=== PATIENT | female | born 1965 | race Hispanic/Latino ===

== ENCOUNTER 2017-09-30 12:20 | Emergency (ER) | payer OTHER | END 2017-09-30 13:22 | disposition home or self-care (01) | LOC: EDH 12:20 | DX: N90.9 Noninflammatory disorder of vulva and perineum, unspecified (principal) ==

== ENCOUNTER 2017-12-25 11:25 | Emergency (ER) | payer OTHER | END 2017-12-25 11:45 | disposition home or self-care (01) | LOC: EDH 11:25 | DX: H60.8X2 Other otitis externa, left ear (principal); Z72.0 Tobacco use ==

== ENCOUNTER → 2020-09-12 | Outpatient (CLI) | payer OTHER | END | disposition home or self-care (01) | LOC: RAH 10:52 | PROVIDERS: ATTEND Internal Medicine | DX: B94.8 Sequelae of other specified infectious and parasitic diseases (principal) | CPT/HCPCS: 71046 ==

== ENCOUNTER 2020-09-19 17:21 | Observation (INO) | payer OTHER ==
[~2020-09-19] VITALS: Ht 149.9 cm; Wt 91.4 kg
[2020-09-19 19:18] LABS: BASOPHILS % (AUTO) 0.6 % (0.0-5.0); EOSINOPHILS % (AUTO) 3.4 % (0.0-8.0); HEMATOCRIT 40.5 % (36-48); LYMPHOCYTES % (AUTO) 28.6 % (21.0-51.0); MEAN CORPUSCULAR HEMOGLOBIN 27.5 pg (27.0-33.0); MEAN CORPUSCULAR HGB CONC 33.1 g/dL (32.0-36.0); MEAN CORPUSCULAR VOLUME 83.2 fL (79-99); NEUTROPHILS % (AUTO) 62.2 % (40.0-77.0); PLATELET COUNT (AUTO) 270 K/uL (130-400); RED BLOOD CELL COUNT(AUTO) 4.87 MIL/uL (4.00-5.50); RED CELL DISTRIBUTION WIDTH 14.1 % (11.0-15.5); WHITE BLOOD COUNT (AUTO) 9.7 K/uL (4.8-10.8)
[2020-09-19 19:21] LABS: CREATININE 0.7 mg/dL (0.5-1.5); POTASSIUM 3.2 mmol/L (3.5-5.1)
[2020-09-19 19:32] LABS: ALBUMIN 3.8 g/dL (3.5-5.0); BILIRUBIN,TOTAL 0.3 mg/dL (0.2-1.0); TOTAL PROTEIN, SERUM 7.1 g/dL (6.0-8.3)
[2020-09-19 19:44] LABS: B-TYPE NATRIURETIC PEPTIDE 19 pg/mL (0-100)
[2020-09-19] MEDS ORDERED: ACETAMINOPHEN 325 MG TAB PO PRN (19:45)
[2020-09-19] MEDS ORDERED: ONDANSETRON HCL 4 MG/2 ML VIAL IV PRN (19:45)
[2020-09-19] MEDS ORDERED: NITROGLYCERIN 0.4 MG SL TAB SL PRN (19:45)
[2020-09-19 20:06] LABS: ABG BASE EXCESS 1.2 mmol/L (-2.0-3.0); ABG HCO3 24.5 mmol/L (21.0-28.0); ABG OXYGEN SATURATION 96.7 % (95.0-99.0); ABG PCO2 35 mmHg (32-45)
[2020-09-19 20:19] LABS: HEMOGLOBIN A1C 5.8 % (4.0-6.0)
[2020-09-19] MEDS: FAMOTIDINE/PF 20 MG/2 ML VIAL IV SCH (21:00)
[2020-09-19 21:09] LABS: CREATINE KINASE, TOTAL 56 U/L (21-232); MYOGLOBIN 29 ng/mL (10-92); PHOSPHORUS 3.5 mg/dL (2.5-4.9); TROPONIN I < 0.04 ng/mL (0.00-0.06)
[2020-09-20] VITALS (7 sets, daily range): BP systolic 103–176; BP diastolic 74–96
[2020-09-20] MEDS ORDERED: POTASSIUM CHLORIDE 20 MEQ ERTAB PO ONE (00:23)
[2020-09-20] MEDS: ATORVASTATIN CALCIUM 20 MG TABLET PO SCH ×2 (01:34→20:52)
[2020-09-20] MEDS ORDERED: DEXTROSE 50%-WATER 50 ML DISP.SYRIN IV PRN (02:00)
[2020-09-20] MEDS ORDERED: GLUCAGON 1MG KIT 1 MG ML IM PRN (02:00)
[2020-09-20] MEDS ORDERED: POTASSIUM CHLORIDE 20MEQ/100ML 100 ML IV PRN (02:00)
[2020-09-20] MEDS ORDERED: LIDOCAINE HCL-MPF 1% 2ML VIAL IV PRN ×2 (02:00)
[2020-09-20] MEDS ORDERED: POTASSIUM CHLORIDE 10MEQ/100ML 100 ML IV PRN (02:00)
[2020-09-20] MEDS ORDERED: POTASSIUM CHLORIDE 10% ELIXIR 20 MEQ/15 ML UDCUP PO PRN ×2 (02:00)
[2020-09-20] MEDS ORDERED: POTASSIUM CHLORIDE 20 MEQ ERTAB PO PRN ×2 (02:00)
[2020-09-20] MEDS ORDERED: LORAZEPAM 2 MG/ML 1 ML VIAL ONE (02:09)
[2020-09-20] MEDS ORDERED: NITROGLYCERIN 1GM/1 INCH PACKET TD ONE (02:10)
[2020-09-20] MEDS: NITROGLYCERIN 1GM/1 INCH PACKET TD SCH ×3 (02:15→18:48)
[2020-09-20] MEDS ORDERED: LORAZEPAM 2 MG/ML 1 ML VIAL IVP PRN (02:15)
[2020-09-20] MEDS ORDERED: LOSA50TA64 PO (02:17)
[2020-09-20 05:02] LABS: BASOPHILS % (AUTO) 0.5 % (0.0-5.0); EOSINOPHILS % (AUTO) 4.6 % (0.0-8.0); HEMATOCRIT 40.4 % (36-48); LYMPHOCYTES % (AUTO) 31.2 % (21.0-51.0); MEAN CORPUSCULAR HEMOGLOBIN 27.2 pg (27.0-33.0); MEAN CORPUSCULAR HGB CONC 32.7 g/dL (32.0-36.0); MEAN CORPUSCULAR VOLUME 83.1 fL (79-99); MONOCYTES % (AUTO) 5.8 % (3.0-13.0); NEUTROPHILS % (AUTO) 57.6 % (40.0-77.0); PLATELET COUNT (AUTO) 264 K/uL (130-400); RED BLOOD CELL COUNT(AUTO) 4.86 MIL/uL (4.00-5.50); RED CELL DISTRIBUTION WIDTH 13.9 % (11.0-15.5); WHITE BLOOD COUNT (AUTO) 8.7 K/uL (4.8-10.8)
[2020-09-20 05:21] LABS: ALANINE AMINOTRANSFERASE 36 U/L (12-78); ALBUMIN 3.4 g/dL (3.5-5.0); ASPARTATE AMINOTRANSFERASE 17 U/L (10-37); BILIRUBIN,TOTAL 0.5 mg/dL (0.2-1.0); CARBON DIOXIDE 27 mmol/L (21-32); CHLORIDE 106 mmol/L (101-111); CREATINE KINASE, TOTAL 46 U/L (21-232); CREATININE 0.7 mg/dL (0.5-1.5); GLOMERULAR FILTR. RATE CALC 93 mL/min (>60); GLUCOSE,RANDOM 91 mg/dL (70-105); MYOGLOBIN 33 ng/mL (10-92); POTASSIUM 3.8 mmol/L (3.5-5.1); SODIUM SERUM 140 mmol/L (136-145); TOTAL PROTEIN, SERUM 6.6 g/dL (6.0-8.3); TROPONIN I < 0.04 ng/mL (0.00-0.06); UREA NITROGEN, BLOOD 14 mg/dL (7-18)
[2020-09-20] MEDS: ASPIRIN 325MG EC TAB 325 MG TABLET.DR PO SCH (10:12)
[2020-09-20] MEDS: LOSARTAN 50 MG TABLET PO SCH (10:13)
[2020-09-20] MEDS: METOPROLOL TARTRATE 25 MG TAB PO SCH ×2 (10:13→20:52)
[2020-09-20] MEDS: FAMOTIDINE/PF 20 MG/2 ML VIAL IV SCH ×2 (10:18→20:52)
[2020-09-20] MEDS: ALBUTEROL SULFATE 0.083% 2.5 MG/3 ML INH IH SCH ×2 (12:00→18:36)
[2020-09-20 12:26] LABS: CREATINE KINASE, TOTAL 46 U/L (21-232); MYOGLOBIN 27 ng/mL (10-92); TROPONIN I < 0.04 ng/mL (0.00-0.06)
[2020-09-20] MEDS ORDERED: REGADENOSON 0.4 MG/5 ML PF SYG IVP SCH (13:00)
[2020-09-20] MEDS: ACETAMINOPHEN 325 MG TAB PO PRN ×2 (13:15→18:54)
[2020-09-21] MEDS: ALBUTEROL SULFATE 0.083% 2.5 MG/3 ML INH IH SCH ×3 (00:13→11:30)
[2020-09-21] MEDS: NITROGLYCERIN 1GM/1 INCH PACKET TD SCH ×2 (02:45→08:37)
[2020-09-21 04:17] LABS: BASOPHILS % (AUTO) 0.7 % (0.0-5.0); EOSINOPHILS % (AUTO) 2.8 % (0.0-8.0); HEMATOCRIT 42.7 % (36-48); LYMPHOCYTES % (AUTO) 23.9 % (21.0-51.0); MEAN CORPUSCULAR HGB CONC 33.5 g/dL (32.0-36.0); MEAN CORPUSCULAR VOLUME 83.6 fL (79-99); MONOCYTES % (AUTO) 5.6 % (3.0-13.0); NEUTROPHILS % (AUTO) 66.9 % (40.0-77.0); NUCLEATED RED BLOOD CELLS 0.6 % (0.0-0.19); PLATELET COUNT (AUTO) 279 K/uL (130-400); RED BLOOD CELL COUNT(AUTO) 5.11 MIL/uL (4.00-5.50); RED CELL DISTRIBUTION WIDTH 13.7 % (11.0-15.5); WHITE BLOOD COUNT (AUTO) 7.2 K/uL (4.8-10.8)
[2020-09-21] MEDS: ACETAMINOPHEN 325 MG TAB PO PRN (04:20)
[2020-09-21 04:34] LABS: ALBUMIN 3.7 g/dL (3.5-5.0); BILIRUBIN,TOTAL 0.6 mg/dL (0.2-1.0); CREATININE 0.9 mg/dL (0.5-1.5); POTASSIUM 3.5 mmol/L (3.5-5.1); TOTAL PROTEIN, SERUM 7.1 g/dL (6.0-8.3)
[2020-09-21 04:45] VITALS: BP 140/96
[2020-09-21 08:00] VITALS: BP 129/83
[2020-09-21] MEDS: ASPIRIN 325MG EC TAB 325 MG TABLET.DR PO SCH (08:37)
[2020-09-21] MEDS: LOSARTAN 50 MG TABLET PO SCH (09:14)
[2020-09-21] MEDS: METOPROLOL TARTRATE 25 MG TAB PO SCH (09:14)
[2020-09-21] MEDS: FAMOTIDINE/PF 20 MG/2 ML VIAL IV SCH (09:15)
[2020-09-21] MEDS ORDERED: IOHEXOL-350 75 ML VIAL IV ONE (10:52)
[2020-09-21 16:00] VITALS: BP 148/87
[2020-09-21] MEDS ORDERED: ALBU8.5H8 IH (16:56)
[2020-09-21] MEDS ORDERED: METO25 PO (16:56)
== END 2020-09-21 17:50 | disposition home or self-care (01) ==
LOC: EDH 17:21 → EDHIP 17:22 → INTOOBSV 17:22 → 4BH 09-20 01:10
PROVIDERS: ADMIT Internal Medicine; ATTEND Internal Medicine
DX: R06.02 Shortness of breath (principal); I20.9 Angina pectoris, unspecified; R06.2 Wheezing; R06.01 Orthopnea; I10 Essential (primary) hypertension; E66.01 Morbid (severe) obesity due to excess calories; R94.31 Abnormal electrocardiogram [ECG] [EKG]; F41.9 Anxiety disorder, unspecified; Z86.16 Personal history of COVID-19; Z87.891 Personal history of nicotine dependence; Z90.49 Acquired absence of other specified parts of digestive tract; Z90.710 Acquired absence of both cervix and uterus; Z79.899 Other long term (current) drug therapy; Z68.41 Body mass index [BMI] 40.0-44.9, adult
CPT/HCPCS: 36415 ×3; 36600; 71045 ×2; 71275; 78452; 80053 ×3; 82550 ×3; 82803; 82948 ×6; 83036; 83605; 83735; 83874 ×4; 83880; 84100; 84145; 84484 ×4; 85025 ×3; 85378; 87804 ×2; 93005 ×3; 93017; 93306; 93356; 93970; 94640 ×4; 94664; 96374; 96375; 96376 ×2; 99285; A9500 ×2; G0378 ×42; J2060 ×2; J2405; J2785; J3490 ×3; Q9967

== ENCOUNTER 2021-10-19 20:46 | Emergency (ER) | payer OTHER ==
[~2021-10-19] VITALS: Ht 149.9 cm; Wt 94.8 kg
[~2021-10-19 20:46] MED LIST: ALBU8.5H8 IH; LOSA50TA64 PO; METO25 PO
[2021-10-19] MEDS ORDERED: ORPHENADRINE CITRATE 30 MG/ML ML IM ONE (22:00)
[2021-10-19] MEDS ORDERED: KETOROLAC 30MG VIAL (30MG/ML) IM ONE (22:00)
[2021-10-19 22:24] LABS: BASOPHILS % (AUTO) 0.6 % (0.0-5.0); LYMPHOCYTES % (AUTO) 12.4 % (21.0-51.0); MEAN CORPUSCULAR HEMOGLOBIN 27.3 pg (27.0-33.0); MEAN CORPUSCULAR HGB CONC 32.5 g/dL (32.0-36.0); MEAN CORPUSCULAR VOLUME 84.1 fL (79-99); MONOCYTES % (AUTO) 1.1 % (3.0-13.0); NEUTROPHILS % (AUTO) 85.4 % (40.0-77.0); PLATELET COUNT (AUTO) 292 K/uL (130-400); RED BLOOD CELL COUNT(AUTO) 5.23 MIL/uL (4.00-5.50); RED CELL DISTRIBUTION WIDTH 13.5 % (11.0-15.5); WHITE BLOOD COUNT (AUTO) 8.8 K/uL (4.8-10.8)
[2021-10-19 22:45] LABS: CREATININE 0.8 mg/dL (0.5-1.5)
[2021-10-19 22:49] LABS: ALBUMIN 4.2 g/dL (3.5-5.0); BILIRUBIN,TOTAL 0.4 mg/dL (0.2-1.0); TOTAL PROTEIN, SERUM 8.1 g/dL (6.0-8.3)
[2021-10-19 23:30] VITALS: BP 142/98
[2021-10-19 23:37] LABS: ERYTHROCYTE SEDIMENTATION RATE 20 MM/HR (0-30)
== END 2021-10-20 00:02 | disposition home or self-care (01) ==
LOC: EDH 20:46
DX: M79.602 Pain in left arm (principal); M25.522 Pain in left elbow; I10 Essential (primary) hypertension; M19.90 Unspecified osteoarthritis, unspecified site; Z79.899 Other long term (current) drug therapy
CPT/HCPCS: 36415; 73080; 80053; 85025; 85651; 96372 ×2; 99284; J1885; J2360

== ENCOUNTER 2021-11-01 01:10 | Emergency (ER) | payer OTHER ==
[~2021-11-01] VITALS: Ht 149.9 cm; Wt 92.5 kg
[2021-11-01 01:52] VITALS: BP 155/85
[2021-11-01] MEDS ORDERED: KETOROLAC 60 MG VIAL (30MG/ML) IM ONE (02:30)
[2021-11-01] MEDS ORDERED: MORPHINE 4 MG SYG IM ONE (03:00)
== END 2021-11-01 03:44 | disposition home or self-care (01) ==
LOC: EDH 01:10
DX: M54.12 Radiculopathy, cervical region (principal); I10 Essential (primary) hypertension; Z90.49 Acquired absence of other specified parts of digestive tract; Z79.899 Other long term (current) drug therapy; Z87.442 Personal history of urinary calculi; Z79.1 Long term (current) use of non-steroidal anti-inflammatories (NSAID)
CPT/HCPCS: 96372 ×2; 99284; J1885; J2270

== ENCOUNTER → 2021-11-20 | Outpatient (CLI) | payer OTHER | END | disposition home or self-care (01) | LOC: RAH 10:23 | PROVIDERS: ATTEND Internal Medicine | DX: M47.22 Other spondylosis with radiculopathy, cervical region (principal); M48.02 Spinal stenosis, cervical region | CPT/HCPCS: 72141 ==

== ENCOUNTER 2022-02-05 08:00 | Observation (INO) | payer OTHER ==
[~2022-02-05] VITALS: Ht 149.9 cm; Wt 90.4 kg
[~2022-02-05 08:00] MED LIST changes: -LOSA50TA64 PO; -METO25 PO
[2022-02-05 09:35] LABS: BASOPHILS % (AUTO) 0.7 % (0.0-5.0); EOSINOPHILS % (AUTO) 2.3 % (0.0-8.0); HEMATOCRIT 46.9 % (36-48); LYMPHOCYTES % (AUTO) 24.4 % (21.0-51.0); MEAN CORPUSCULAR HEMOGLOBIN 27.4 pg (27.0-33.0); MEAN CORPUSCULAR HGB CONC 32.4 g/dL (32.0-36.0); MEAN CORPUSCULAR VOLUME 84.7 fL (79-99); MONOCYTES % (AUTO) 6.1 % (3.0-13.0); NEUTROPHILS % (AUTO) 66.3 % (40.0-77.0); PLATELET COUNT (AUTO) 301 K/uL (130-400); RED BLOOD CELL COUNT(AUTO) 5.54 MIL/uL (4.00-5.50); RED CELL DISTRIBUTION WIDTH 13.4 % (11.0-15.5); WHITE BLOOD COUNT (AUTO) 8.6 K/uL (4.8-10.8)
[2022-02-05 09:45] LABS: CREATININE 0.9 mg/dL (0.5-1.5)
[2022-02-07] MEDS ORDERED: BUSP30TA2 PO (11:27)
[2022-02-07] MEDS ORDERED: GABA300C PO (11:27)
[2022-02-07] MEDS ORDERED: LOSA100T58 PO (11:27)
[2022-02-08] VITALS (28 sets, daily range): BP systolic 135–177; BP diastolic 74–102
[2022-02-08] MEDS: CEFAZOLIN SODIUM 1 GM VIAL IVP SCH ×6 (06:00→18:08)
[2022-02-08] MEDS ORDERED: LACTATED RINGERS 1000ML 1,000 ML IV ONE (06:19)
[2022-02-08] MEDS ORDERED: BUPIVACAINE/EPI/PF 0.25% 30ML VIAL IJ ONE (06:48)
[2022-02-08] MEDS ORDERED: CEFAZOLIN SODIUM 1 GM VIAL ONE (06:48)
[2022-02-08] MEDS ORDERED: THROMBIN-JMI 5000 UNIT/VIAL TP ONE (06:50)
[2022-02-08] MEDS ORDERED: HYDROMORPHONE 1 MG INJ ONE (07:14)
[2022-02-08] MEDS ORDERED: PHENYLEPHRINE HCL 10 MG/ML 1ML VIAL IV ONE (07:14)
[2022-02-08] MEDS ORDERED: FAMOTIDINE 20MG VIAL IV ONE (07:14)
[2022-02-08] MEDS ORDERED: PROPOFOL 1000 MG/100 ML 200 ML IV ONE (07:15)
[2022-02-08] MEDS ORDERED: ROCURONIUM 10MG/1ML SYR 10 MG/ML ML ONE (07:42)
[2022-02-08] MEDS ORDERED: FENTANYL CITRATE PF 50 MCG/1 ML 2ML VIAL ONE ×2 (07:43→10:46)
[2022-02-08] MEDS ORDERED: MIDAZOLAM HCL 1 MG/ML 2ML VIAL ONE (07:50)
[2022-02-08] MEDS ORDERED: FENTANYL CITRATE PF 50 MCG/1 ML 5ML AMP IV ONE (08:23)
[2022-02-08] MEDS ORDERED: DEXAMETHASONE SOD PHOSPHATE 4 MG/ML 1ML VIAL ONE (08:31)
[2022-02-08] MEDS ORDERED: ONDANSETRON 4MG INJ ONE (08:32)
[2022-02-08] MEDS ORDERED: MEPERIDINE-PF 25 MG/ML SYG ONE ×2 (10:44→10:46)
[2022-02-08] MEDS: DEXAMETHASONE SOD PHOSPHATE 4 MG/ML 1ML VIAL IVP SCH ×3 (11:00→23:05)
[2022-02-08] MEDS ORDERED: PROMETHAZINE HCL 25 MG/ML 1ML AMPULE IM PRN (11:00)
[2022-02-08] MEDS ORDERED: 0.9%NACL 10ML VIAL IVP PRN (11:00)
[2022-02-08] MEDS ORDERED: LACTATED RINGERS 1000ML 1,000 ML IV SCH (11:00)
[2022-02-08] MEDS ORDERED: ALBUTEROL INHALER 90MCG/INH IH PRN (11:00)
[2022-02-08] MEDS ORDERED: MORPHINE 2 MG SYG IVP PRN (11:00)
[2022-02-08] MEDS ORDERED: LABETALOL 20MG SYG IV ONE ×2 (11:12→17:38)
[2022-02-08] MEDS: HYDROCODONE/ACETAMINOPHEN 5/325 MG TAB PO PRN ×2 (14:34→20:38)
[2022-02-08] MEDS ORDERED: CLONIDINE HCL 0.1 MG TABLET ONE (15:53)
[2022-02-08] MEDS ORDERED: CLONIDINE HCL 0.1 MG TABLET PO ONE (16:00)
[2022-02-08] MEDS ORDERED: LOSARTAN 100 MG TABLET PO ONE (16:30)
[2022-02-08] MEDS ORDERED: LABETALOL 20MG VIAL IV PRN (16:30)
[2022-02-08 16:35] LABS: BASOPHILS % (AUTO) 0.3 % (0.0-5.0); LYMPHOCYTES % (AUTO) 6.1 % (21.0-51.0); MEAN CORPUSCULAR HEMOGLOBIN 27.3 pg (27.0-33.0); MEAN CORPUSCULAR HGB CONC 32.3 g/dL (32.0-36.0); MEAN CORPUSCULAR VOLUME 84.5 fL (79-99); MONOCYTES % (AUTO) 0.5 % (3.0-13.0); NEUTROPHILS % (AUTO) 92.8 % (40.0-77.0); PLATELET COUNT (AUTO) 275 K/uL (130-400); RED BLOOD CELL COUNT(AUTO) 5.21 MIL/uL (4.00-5.50); RED CELL DISTRIBUTION WIDTH 13.2 % (11.0-15.5); WHITE BLOOD COUNT (AUTO) 10.6 K/uL (4.8-10.8)
[2022-02-08 16:46] LABS: POTASSIUM 3.8 mmol/L (3.5-5.1)
[2022-02-08] MEDS: GABAPENTIN 300 MG CAPSULE PO SCH (20:39)
[2022-02-09 04:40] VITALS: BP 141/80
[2022-02-09] MEDS: DEXAMETHASONE SOD PHOSPHATE 4 MG/ML 1ML VIAL IVP SCH (05:33)
[2022-02-09 07:45] VITALS: BP 135/83
[2022-02-09] MEDS: GABAPENTIN 300 MG CAPSULE PO SCH (08:35)
[2022-02-09] MEDS ORDERED: LOSARTAN 100 MG TABLET PO SCH (09:00)
[2022-02-09] MEDS ORDERED: BUSPIRONE HCL 5 MG TABLET PO SCH (09:00)
== END 2022-02-09 09:05 | disposition home or self-care (01) ==
LOC: EDSTATUS 08:00 → DAHIP 02-08 05:48 → 4AH 02-08 11:50
PROVIDERS: ADMIT Neurological Surgery; ATTEND Neurological Surgery
DX: M47.22 Other spondylosis with radiculopathy, cervical region (principal); Z20.822 Contact with and (suspected) exposure to COVID-19; G89.4 Chronic pain syndrome; M25.78 Osteophyte, vertebrae; M48.02 Spinal stenosis, cervical region; Z90.710 Acquired absence of both cervix and uterus; Z90.49 Acquired absence of other specified parts of digestive tract
CPT/HCPCS: 80048 ×2; 85025 ×2; 87426; 36415 ×2; 71045; 93005 ×2; 22853 ×3; 22551; 20930; 22845; 96374; 96376 ×2; 96372; 96375; 72020; A6260; G0378 ×20; G0379; A4510; A4663; A4344; A4649 ×5; J7120; J3490 ×3; J3010 ×3; J0690 ×3; J1170; J2550; J2250; J2704; J2405; J1100 ×4; J2175 ×2; J2370; C1713; A4215; A4223; A4222; A4221; A4600

== ENCOUNTER → 2022-03-12 | Outpatient (CLI) | payer OTHER ==
[~2022-03-12] MED LIST changes: +BUSP30TA2 PO; +GABA300C PO; +LOSA100T58 PO
== END | disposition home or self-care (01) ==
LOC: RAH 09:24
PROVIDERS: ATTEND Neurological Surgery
DX: M43.22 Fusion of spine, cervical region (principal); Z98.1 Arthrodesis status
CPT/HCPCS: 72040

== ENCOUNTER 2022-09-24 05:46 | Emergency (ER) | payer OTHER ==
[~2022-09-24] VITALS: Ht 149.9 cm; Wt 90.3 kg
[2022-09-24] MEDS ORDERED: 0.9%NACL 1000ML 1,000 ML IV ONE (06:03)
[2022-09-24] MEDS ORDERED: ONDANSETRON 4MG INJ ONE (06:03)
[2022-09-24] MEDS ORDERED: KETOROLAC 30MG VIAL (30MG/ML) ONE (06:06)
[2022-09-24 06:15] LABS: BASOPHILS % (AUTO) 0.4 % (0.0-5.0); EOSINOPHILS % (AUTO) 1.1 % (0.0-8.0); HEMATOCRIT 43.6 % (36-48); LYMPHOCYTES % (AUTO) 14.4 % (21.0-51.0); MEAN CORPUSCULAR HEMOGLOBIN 27.7 pg (27.0-33.0); MEAN CORPUSCULAR HGB CONC 32.1 g/dL (32.0-36.0); MEAN CORPUSCULAR VOLUME 86.3 fL (79-99); MONOCYTES % (AUTO) 5.3 % (3.0-13.0); NEUTROPHILS % (AUTO) 78.4 % (40.0-77.0); PLATELET COUNT (AUTO) 265 K/uL (130-400); RED BLOOD CELL COUNT(AUTO) 5.05 MIL/uL (4.00-5.50); RED CELL DISTRIBUTION WIDTH 13.6 % (11.0-15.5); WHITE BLOOD COUNT (AUTO) 13.7 K/uL (4.8-10.8)
[2022-09-24 06:17] LABS: APPEARANCE,URINE CLOUDY (CLEAR); BILIRUBIN,URINE NEGATIVE (NEGATIVE); COLOR,URINE LIGHT-BROWN (YELLOW); GLUCOSE, URINE (UA) NEGATIVE (NEGATIVE); KETONES,URINE NEGATIVE (NEGATIVE); LEUKOCYTE ESTERASE ,URINE NEGATIVE Leu/uL (NEGATIVE); NITRATE,URINE NEGATIVE (NEGATIVE); OCCULT BLOOD,URINE LARGE (NEGATIVE); PH,URINE 6.5 (5.0-8.0); PROTEIN,URINE 20 mg/dL (NEGATIVE); UROBILINOGEN,URINE 0.2 mg/dL (0.2-1.0)
[2022-09-24 06:23] LABS: BACTERIA,URINE RARE /HPF (None Seen); RBC,URINE TNTC /HPF (0-1); SQUAMOUS EPITHELIAL CELL,UR FEW /HPF (0-2)
[2022-09-24] MEDS ORDERED: KETOROLAC 30MG VIAL (30MG/ML) IVP ONE (06:30)
[2022-09-24] MEDS ORDERED: 0.9%NACL 1000ML 1,000 ML IV SCH (06:30)
[2022-09-24] MEDS ORDERED: ONDANSETRON 4MG INJ IVP ONE (06:30)
[2022-09-24 06:37] LABS: CREATININE 1.1 mg/dL (0.5-1.5); POTASSIUM 3.7 mmol/L (3.5-5.1); TOTAL PROTEIN, SERUM 7.4 g/dL (6.0-8.3)
[2022-09-24] MEDS ORDERED: TAMSULOSIN HCL 0.4 MG CAP.ER.24H ONE (09:09)
[2022-09-24 09:19] VITALS: BP 151/76
[2022-09-24] MEDS ORDERED: TAMSULOSIN HCL 0.4 MG CAP.ER.24H PO ONE (09:30)
[2022-09-24] MEDS ORDERED: MORPHINE 2 MG SYG IVP ONE (09:30)
[2022-09-24] MEDS ORDERED: IBUP-2070 PO (10:05)
[2022-09-24] MEDS ORDERED: TAMS-1 PO (10:05)
[2022-09-24] MEDS ORDERED: ACET-2079 PO (10:05)
== END 2022-09-24 10:24 | disposition home or self-care (01) ==
LOC: EDH 05:46
DX: N13.2 Hydronephrosis with renal and ureteral calculous obstruction (principal); F41.9 Anxiety disorder, unspecified; Z90.710 Acquired absence of both cervix and uterus; Z98.890 Other specified postprocedural states; Z90.49 Acquired absence of other specified parts of digestive tract; Z79.899 Other long term (current) drug therapy; Z87.442 Personal history of urinary calculi
CPT/HCPCS: 99285; 74176; 96374; 96361; 96375; 80053; 85025; 87088; 81001; 36415; J7030; J2405; J1885

== ENCOUNTER 2023-05-30 09:33 | Emergency (ER) | payer OTHER ==
[~2023-05-30] VITALS: Ht 177.8 cm; Wt 93.0 kg
[~2023-05-30 09:33] MED LIST changes: +ACET-2079 PO; +IBUP-2070 PO; -LOSA100T58 PO; +LOSA100T59 PO; +TAMS-1 PO
[2023-05-30] MEDS ORDERED: TRAMADOL /APAP 37.5MG/325MG TAB PO ONE (11:00)
[2023-05-30 12:05] VITALS: BP 177/84; PULSE 60; RESP 18; O2SAT 98
[2023-05-30 13:21] LABS: BASOPHILS # (AUTO) 0.06 K/uL (0.00-0.20); BASOPHILS % (AUTO) 0.6 % (0.0-5.0); EOSINOPHILS # (AUTO) 0.28 K/uL (0.00-0.70); HEMATOCRIT 43.7 % (36-48); IMMATURE GRANULOCYTE ABSOLUTE 0.03 K/uL (0-1); LYMPHOCYTES # (AUTO) 2.8 K/uL (1.0-4.8); LYMPHOCYTES % (AUTO) 29.4 % (21.0-51.0); MEAN CORPUSCULAR HEMOGLOBIN 28.5 pg (27.0-33.0); MEAN CORPUSCULAR HGB CONC 33.2 g/dL (32.0-36.0); MONOCYTES # (AUTO) 0.5 K/uL (0.1-1.0); MONOCYTES % (AUTO) 5.5 % (3.0-13.0); NEUTROPHILS # (AUTO) 5.8 K/uL (1.8-7.7); NEUTROPHILS % (AUTO) 61.2 % (40.0-77.0); PLATELET COUNT (AUTO) 309 K/uL (130-400); RED BLOOD CELL COUNT(AUTO) 5.08 MIL/uL (4.00-5.50); RED CELL DISTRIBUTION WIDTH 13.7 % (11.0-15.5); WHITE BLOOD COUNT (AUTO) 9.5 K/uL (4.8-10.8)
[2023-05-30 13:28] LABS: CREATININE 0.8 mg/dL (0.5-1.5); POTASSIUM 3.8 mmol/L (3.5-5.1)
[2023-05-30] MEDS ORDERED: TRAM100T40 PO (15:25)
== END 2023-05-30 15:31 | disposition home or self-care (01) ==
LOC: EDH 09:33
DX: M54.12 Radiculopathy, cervical region (principal); F41.9 Anxiety disorder, unspecified; Z79.899 Other long term (current) drug therapy; Z90.49 Acquired absence of other specified parts of digestive tract; Z98.890 Other specified postprocedural states
CPT/HCPCS: 36415; 72050; 72156; 80048; 85025

== ENCOUNTER 2025-01-09 19:32 | Emergency (ER) | payer BC ==
[~2025-01-09] VITALS: Ht 149.9 cm; Wt 88.0 kg
[~2025-01-09 19:32] MED LIST changes: -TAMS-1 PO; +TAMS-55 PO; +TRAM100T56 PO
--- NOTE | 2025-01-09 19:52 | ERN ---
ED Note History of Present Illness Stated Complaint: LEFT ARM/SHOULDER PAIN Chief Complaint: Upper Extremity Pain/Injury Time Seen by MD: 19:34 Time Seen by Midlevel: 19:34 Dictation: The patient is a 59-year-old female with a history of hypertension, appendectomy who presents to the emergency department with complaints of left shoulder and upper arm pain after she accidentally slipped and fell three days ago. Patient reports she hit her shoulder on the wall trying to break the fall due to injury to right hand for which she is already seeing orthopedic. Patient denies any head trauma or any other injuries. Patient noted to be hypertensive in ER. Reports she took her losartan today. Otherwise no other complaints Allergies: Coded Allergies: No Known Drug Allergies (Verified Allergy, Unknown, 09/19/20) Home Meds Active Scripts Tramadol HCl (Tramadol HCl) 100 Mg Tablet, 100 MG PO Q6HPRN PRN for PAIN LEVEL 7 TO 10 for 5 Days, #20 TAB Prov:EDGARDO GOFF V [employer]OURER 05/30/23 Tamsulosin HCl (Flomax) 0.4 Mg Cap.er.24h, 0.4 MG PO DAILY for 7 Days, #7 CAP MIRZA.DR Prov:ROBBI FRANKLIN MD 09/24/22 Acetaminophen with Codeine (Acetaminophen-Cod #3 Tablet) 1 Each Tablet, 1 TAB PO Q6H PRN for SEVERE PAIN (7-10), #15 TAB Prov:ROBBI FRANKLIN MD 09/24/22 Ibuprofen (Ibuprofen) 600 Mg Tablet, 600 MG PO Q6H PRN for PAIN, #30 TAB Prov:ROBBI FRANKLIN MD 09/24/22 Albuterol Sulfate (Proair Hfa) 8.5 Gm Hfa.aer.ad, 8.5 GM IH Q4HPRN PRN for WHEEZING for 30 Days, #1 INHALER Prov:JANA DEJESUS 09/21/20 Reported Medications Buspirone HCl (Buspirone HCl) 30 Mg Tablet, 30 MG PO DAILY, TAB 02/07/22 Gabapentin (Neurontin) 300 Mg Capsule, 300 MG PO BID, CAP 02/07/22 Losartan Potassium (Losartan Potassium) 100 Mg Tablet, 100 MG PO DAILY, TAB 02/07/22 Past Medical History Past Medical History: Anxiety, Hypertension Surgical History: Appendectomy, Cholecystectomy, Surgical History Other: C5 SURGERY Social History: Negative, Lives with family, Other History: Not Applicable RN Note Reviewed/Agreed w/PFSH: Yes Review of System Dictation Constitutional: Negative for fever,chills, and weight loss Eyes: Negative for injury, pain,redness, and discharge ENT: Negative for injury,pain or swelling Cardiovascular: Negative for chest pain, palpitations, and edema Respiratory: Negative for shortness of breath, cough, and wheezing, Abdomen/GI: Negative for abdominal pain, nausea, vomiting, diarrhea, and constipation Back: Negative for injury and pain : Negative for injury, bleeding and discharge MS/Extremity: Positive for left shoulder pain Skin: Negative for rash, and discoloration Neuro: Negative for headache, weakness, numbness, tingling, and seizure Psych: Negative for suicide ideation, homicidal ideation, and hallucinations Initial Vital Sign VS Vital Signs Date Time Temp Pulse Resp B/P (MAP) Pulse Ox O2 Delivery O2 Flow Rate FiO2 01/09/25 19:37 98.4 90 16 221/111 99 0 01/09/25 20:14 Room Air* 21 Physical Exam Dictation Vital Signs reviewed General Appearance: Alert, oriented x 3, no acute distress, well developed, nourished. Head and Face: non-traumatic. Eyes: PERRL, pink conjunctivas, eyelid no trauma, anterior chamber with arcus senilis. Ears: Pinnas intact and no signs of trauma or erythema ear canals clear and no discharge TM no erythema Nose: No discharge, no bleeding. Oropharynx: Mouth normal, tongue pink. pharynx clear,no erythema, tonsils no exudates, no abscesses noted, mucous membrane moist Neck: Supple, non-tender, no thyromegaly, no masses, no JVD, no bruits Breast:Deferred Chest:No tenderness, no crepitus, no paradoxical movement, no retractions Lungs:Clear, well-ventilated, symmetric, no rales, no wheezing, no rhonchi, no stridor, good breath sounds bilaterally Heart: Regular rate, regular rhythm, no murmur, no gallops Vascular: no peripheral edema, radial pulse 3 +bilaterally Abdomen: Soft, positive bowel sounds, nondistended, no guarding, nontender, no rebound, no masses no hepatomegaly, no splenomegaly, no Shetty's sign, no hernias. Rectal: Deferred Genital: Deferred Neurological: Normal speech, motor function intact, sensory function intact Musculoskeletal: Neck nontender, full range of motion, back nontender, full range of motion, Extremities: nontender, full range of motion , tenderness to left shoulder, tenderness to left upper arm, cap refill to fingers visit in 2 seconds, full range of motion Skin: Color pink, dry, no turgor, no rash, no lacerations, no abrasions, no contusions. Lymphatic: Deferred Results (Laboratory/Radiology) Laboratory/Radiology REASON: fall, pain ORDERING PHYSICIAN: AARON MONTALVO [employer] PROCEDURE: SHOL 2V LT - SHOULDER COMP 2+VWS LT EXAM: CR right Shoulder, 2 View. CLINICAL HISTORY: fall, pain COMPARISON: None provided. FINDINGS: BONES: No acute fracture or aggressive appearing osseous lesion. JOINTS: No dislocation. The joint spaces are normal. SOFT TISSUES: The soft tissues are unremarkable. IMPRESSION: No acute abnormality evident on examination of the right shoulder. No acute fracture or dislocation. Recommended MRI if further clinically indicated. /[facility] REASON: fall ORDERING PHYSICIAN: AARON MONTALVO [employer] PROCEDURE: HUM 2V LT - HUMERUS 2+VWS LT EXAM: CR right Humerus, 2 View. CLINICAL HISTORY: fall COMPARISON: None provided. FINDINGS: BONES: No acute fracture or aggressive appearing osseous lesion. JOINTS: No dislocation. The joint spaces are normal. SOFT TISSUES: The soft tissues are unremarkable. IMPRESSION: No acute osseous abnormality. /[place] Labs Reviewed?: Yes ED Course ED Course Orders Procedure Category Date Status Time Shoulder Comp 2+Vws Lt RAD 01/09/25 Resulted 19:42 Cyclobenzaprine Hcl PHA 01/09/25 Complete (Cyclobenzaprine Hcl 20:00 Hydrocodone/Apap PHA 01/09/25 Complete 5/325 ([place] 5/325mg) 20:00 Humerus 2+Vws Lt RAD 01/09/25 Resulted 19:49 Sling DANNA 01/09/25 In Process 20:58 Current Medications Medications (Trade) Dose Ordered Sig/Melanie Route PRN Reason Start Time Stop Time Status Last Admin Dose Admin Acetaminophen/ Hydrocodone Bitart (NORco 5/325MG) 1 tab ONCE ONCE PO 01/09/25 20:00 01/09/25 20:01 DC 01/09/25 19:59 Cyclobenzaprine HCl (Cyclobenzaprine HCl) 10 mg ONCE ONCE PO 01/09/25 20:00 01/09/25 20:01 DC 01/09/25 19:59 Vital Signs Date Time Temp Pulse Resp B/P (MAP) Pulse Ox O2 Delivery O2 Flow Rate FiO2 01/09/25 20:14 98.4 82 18 160/82 98 Room Air* 0 21 01/09/25 19:37 98.4 90 16 221/111 99 0 Medical Decision Making MDM The patient is a 59-year-old female with a history of hypertension, appendectomy who presents to the emergency department with complaints of left shoulder and upper arm pain after she accidentally slipped and fell three days ago. Patient reports she hit her shoulder on the wall trying to break the fall due to injury to right hand for which she is already seeing orthopedic. Patient denies any head trauma or any other injuries. Patient noted to be hypertensive in ER. Reports she took her losartan today. Otherwise no other complaints X-ray showed fractures or dislocations per patient was placed on a arm sling . On physical exam continues in no acute distress. Patient is neurovascularly intact. Full range of motion to shoulder and arm. Patient is already seen an orthopedic for a previous injury to her right hand. Patient instructed to follow up with the same orthopedic for this problem. Patient's blood pressure improved spontaneously after pain medications otherwise patient was not symptomatic with elevated blood pressure. Patient agrees to be discharged. Differential diagnosis: Shoulder dislocation, rotator cuff injury, humerus fracture Need for hospitalization: Patient does not meet criteria for hospitalization. There are no social concerns with this patient. DX & DISP Disposition: Discharge Departure Impression: Primary Impression: Sprain of left shoulder Additional Impressions: Fall, Arm contusion Condition: Stable Scripts Meloxicam (Meloxicam) 7.5 Mg Tablet 1 TAB PO DAILY for 10 Days, #30 TAB 0 Refills Prov: AARON MONTALVO WH[employer]ER 01/09/25 Additional Instructions: Please follow up with the your orthopedic doctor. Your x-ray showed no fractures or dislocations. If anything worsens please return to ER. FOLLOW-UP WITH PRIMARY CARE PROVIDER IN 1 TO 2 DAYS. TAKE MEDICATIONS DIRECTED HERE IN THE EMERGENCY ROOM. OKAY TO CONTINUE HOME MEDICATIONS UNLESS OTHERWISE DISCUSSED DURING YOUR VISIT IN THE EMERGENCY ROOM TODAY. RETURN TO YOUR NEAREST EMERGENCY ROOM IF SYMPTOMS WORSEN OR IF THERE IS NO IMPROVEMENT. CALL 911 IF YOU NEED IMMEDIATE ASSISTANCE. TAKE TYLENOL [id number] NEEDED AND IF NO CONTRAINDICATIONS ARE PRESENT. INCREASE ORAL HYDRATION. A WOUND CULTURE OR URINE CULTURE WAS ORDERED HERE IN THE EMERGENCY ROOM DEPARTMENT PLEASE FOLLOW-UP WITH PRIMARY CARE PROVIDER AND ADVISE THEM TO GET REPEAT PORTS FROM OUR FACILITY. IF YOU HAD ANY SUSIE WRAP/SPLINTS THAT WERE APPLIED HERE, PLEASE DO NOT REMOVE THEM UNTIL YOU SEE YOUR PRIMARY CARE OR SPECIALTY. Referrals: MATTHEW ESPARZA MD (PCP) Time of Disposition: 21:02 I have reviewed the case, and I agree with, Diagnosis and Plan AARON MONTALVO [facility] Jan 09, 2025 19:51
[2025-01-09] MEDS: HYDROcodone/APAP 5/325 1 TAB TABLET PO ONE (19:59)
[2025-01-09] MEDS: CYCLOBENZAPRINE HCL 10 MG TABLET PO ONE (19:59)
--- NOTE | 2025-01-09 20:33 | HMCIMG ---
EXAM: CR right Shoulder, 2 View. CLINICAL HISTORY: fall, pain COMPARISON: None provided. FINDINGS: BONES: No acute fracture or aggressive appearing osseous lesion. JOINTS: No dislocation. The joint spaces are normal. SOFT TISSUES: The soft tissues are unremarkable. IMPRESSION: No acute abnormality evident on examination of the right shoulder. No acute fracture or dislocation. Recommended MRI if further clinically indicated. /[place]
--- NOTE | 2025-01-09 20:57 | HMCIMG ---
EXAM: CR right Humerus, 2 View. CLINICAL HISTORY: fall COMPARISON: None provided. FINDINGS: BONES: No acute fracture or aggressive appearing osseous lesion. JOINTS: No dislocation. The joint spaces are normal. SOFT TISSUES: The soft tissues are unremarkable. IMPRESSION: No acute osseous abnormality. /[place]
[2025-01-09] MEDS ORDERED: MELO-106 PO (21:04)
[2025-01-09 21:27] VITALS: BP 154/76; PULSE 83; RESP 20; TEMP 98.5; O2SAT 97
== END 2025-01-09 21:32 | disposition admitted as inpatient to this hospital (09) ==
LOC: EDH 19:32
DX: S43.402A Unspecified sprain of left shoulder joint, initial encounter (principal); S40.022A Contusion of left upper arm, initial encounter; F41.9 Anxiety disorder, unspecified; I10 Essential (primary) hypertension; Z79.899 Other long term (current) drug therapy; Z90.49 Acquired absence of other specified parts of digestive tract; W01.0XXA Fall on same level from slipping, tripping and stumbling without subsequent striking against object, initial encounter; Y93.89 Activity, other specified; Y92.89 Other specified places as the place of occurrence of the external cause; Y99.8 Other external cause status
CPT/HCPCS: 73030; 73060; 99283

== ENCOUNTER 2025-03-21 18:45 | Emergency (ER) | payer BC ==
[~2025-03-21] VITALS: Ht 149.9 cm; Wt 87.1 kg
[~2025-03-21 18:45] MED LIST changes: +IBUP-1492 PO; -IBUP-2070 PO; +MELO-106 PO
--- NOTE | 2025-03-21 18:51 | NUR ---
NOTIFIED JAILENE MURGUIA OF B/P , NO NEW ORDERS AT THIS TIME, PT APPEARS ASYMPTOMATIC
--- NOTE | 2025-03-21 18:59 | ERN ---
ED Note History of Present Illness Stated Complaint: BLOOD IN URINE Chief Complaint: Blood in Urine: Time Seen by MD: 18:50 Dictation: PATIENT IS A 60-YEAR-OLD FEMALE COMING IN TODAY WITH HAVING BLOOD IN HER URINE FOR THE LAST SEVEN DAYS. SHE DENIES ANY FLANK PAIN NO NAUSEA VOMITING NO DIARRHEA. NO FEVER NO CHILLS. STATES SHE HAS NOT BEEN TO SEE HER PRIMARY CARE DOCTOR, STATES SHE HAS A AN APPOINTMENT WITH HIM ON SATURDAY. SHE STATES SHE DOES HAVE A HISTORY OF KIDNEY STONES AND IT WAS YEARS AGO AND SHE DOES NOT REMEMBER THE UROLOGIST SHE SAW. SHE SAID IT WITH THAT TIME THOUGH SHE HAD FLANK PAIN. Allergies: Coded Allergies: No Known Drug Allergies (Verified Allergy, Unknown, 09/19/20) Home Meds Active Scripts Meloxicam (Meloxicam) 7.5 Mg Tablet, 1 TAB PO DAILY for 10 Days, #30 TAB 0 Refills Prov:AARON MONTALVO [employer] 01/09/25 Tramadol HCl (Tramadol HCl) 100 Mg Tablet, 100 MG PO Q6HPRN PRN for PAIN LEVEL 7 TO 10 for 5 Days, #20 TAB Prov:EDGARDO GOFF V [employer] 05/30/23 Tamsulosin HCl (Flomax) 0.4 Mg Cap.er.24h, 0.4 MG PO DAILY for 7 Days, #7 CAPSULE.DR Prov:ROBBI FRANKLIN MD 09/24/22 Acetaminophen with Codeine (Acetaminophen-Cod #3 Tablet) 1 Each Tablet, 1 TAB PO Q6H PRN for SEVERE PAIN (7-10), #15 TAB Prov:ROBBI FRANKLIN MD 09/24/22 Ibuprofen (Ibuprofen) 600 Mg Tablet, 600 MG PO Q6H PRN for PAIN, #30 TAB Prov:ROBBI FRANKLIN MD 09/24/22 Albuterol Sulfate (Proair Hfa) 8.5 Gm Hfa.aer.ad, 8.5 GM IH Q4HPRN PRN for WHEEZING for 30 Days, #1 INHALER Prov:JANA DEJESUS 09/21/20 Reported Medications Buspirone HCl (Buspirone HCl) 30 Mg Tablet, 30 MG PO DAILY, TAB 02/07/22 Gabapentin (Neurontin) 300 Mg Capsule, 300 MG PO BID, CAP 02/07/22 Losartan Potassium (Losartan Potassium) 100 Mg Tablet, 100 MG PO DAILY, TAB 02/07/22 Past Medical History Past Medical History: Anxiety, Hypertension Surgical History: Appendectomy, Cholecystectomy, Surgical History Other: C5 SURGERY Social History: Negative, Lives with family, Other History: Not Applicable RN Note Reviewed/Agreed w/PFSH: Yes Review of System Dictation CONSTITUTIONAL: NEGATIVE EXCEPT FOR HPI HEAD/FACE: NEGATIVE EXCEPT FOR HPI EENT: NEGATIVE EXCEPT FOR HPI RESPIRATORY: NEGATIVE EXCEPT FOR HPI GASTROINTESTINAL/ABDOMINAL: NEGATIVE EXCEPT FOR HPI GENITOURINARY: NEGATIVE EXCEPT FOR HPI HEMATURIA MUSCULOSKELETAL: NEGATIVE EXCEPT FOR HPI INTEGUMENTARY: NEGATIVE EXCEPT FOR HPI NEUROLOGICAL/PSYCH: NEGATIVE EXCEPT FOR HPI HEMATOLOGIC/LYMPHATIC: NEGATIVE EXCEPT FOR HPI ALL SYSTEMS NEGATIVE, EXCEPT NOTED ABOVE. 13 POINT REVIEW OF SYSTEMS ASSESSED AND ALL NEGATIVE EXCEPT FOR ABOVE. Initial Vital Sign VS Vital Signs Date Time Temp Pulse Resp B/P (MAP) Pulse Ox O2 Delivery O2 Flow Rate FiO2 03/21/25 18:47 97.9 76 16 193/95 98 Room Air 03/21/25 20:06 0 21 Physical Exam Dictation VITAL SIGNS REVIEWED GENERAL APPEARANCE: ALERT, ORIENTED X 3, NO ACUTE DISTRESS, WELL DEVELOPED, NOURISHED. 0/10 PAIN. HEAD AND FACE: NON-TRAUMATIC. EYES: PERRL, PINK CONJUNCTIVAS, EYELID NO TRAUMA, ANTERIOR CHAMBER WITH ARCUS SENILIS. EARS: PINNAS INTACT AND NO SIGNS OF TRAUMA OR ERYTHEMA EAR CANALS CLEAR AND NO DISCHARGE TM NO ERYTHEMA NOSE: NO DISCHARGE, NO BLEEDING. OROPHARYNX: MOUTH NORMAL, TONGUE PINK, PHARYNX CLEAR,NO ERYTHEMA, TONSILS NO EXUDATES, NO ABSCESSES NOTED, MUCOUS MEMBRANE MOIST NECK: SUPPLE, NON-TENDER, NO THYROMEGALY, NO MASSES, NO JVD, NO BRUITS BREAST:DEFERRED CHEST:NO TENDERNESS, NO CREPITUS, NO PARADOXICAL MOVEMENT, NO RETRACTIONS LUNGS:CLEAR, WELL-VENTILATED, SYMMETRIC, NO RALES, NO WHEEZING, NO RHONCHI, NO STRIDOR, GOOD BREATH SOUNDS BILATERALLY HEART: REGULAR RATE, REGULAR RHYTHM, NO MURMUR, NO GALLOPS VASCULAR: NO PERIPHERAL EDEMA, ABDOMEN: SOFT, POSITIVE BOWEL SOUNDS, NONDISTENDED, NO GUARDING, NONTENDER, NO REBOUND, NO MASSES NO HEPATOMEGALY, NO SPLENOMEGALY, NO TAYLOR'S SIGN, NO HERNIAS. NEGATIVE CVAT BILATERALLY RECTAL: DEFERRED GENITAL: DEFERRED NEUROLOGICAL: NORMAL SPEECH, MOTOR FUNCTION INTACT, SENSORY FUNCTION INTACT MUSCULOSKELETAL: NECK NONTENDER, FULL RANGE OF MOTION, BACK NONTENDER, FULL RANGE OF MOTION, EXTREMITIES: NONTENDER, FULL RANGE OF MOTION SKIN: COLOR PINK, DRY, NO TURGOR, NO RASH, NO LACERATIONS, NO ABRASIONS, NO CONTUSIONS. LYMPHATIC: DEFERRED Results (Laboratory/Radiology) Laboratory/Radiology Laboratory Tests Test 03/21/25 19:00 03/21/25 19:19 Urine Color LIGHT-ORANGE (YELLOW) Urine Appearance CLOUDY (CLEAR) H Urine pH 5.5 (5.0-8.0) Urine Specific [place] 1.034 (1.001-1.031) Urine Protein 50 mg/dL (NEGATIVE) H Urine Glucose (UA) NEGATIVE mg/dL (NEGATIVE) Urine Ketones NEGATIVE mg/dL (NEGATIVE) Urine Occult Blood LARGE (NEGATIVE) H Urine Nitrate NEGATIVE (NEGATIVE) Urine Bilirubin NEGATIVE mg/dL (NEGATIVE) Urine Urobilinogen 0.2 mg/dL (0.2-1.0) Urine Leukocyte Esterase NEGATIVE Thony/uL Urine RBC >100 /HPF (0-1) H Urine WBC 11-25 /HPF (0-1) H Urine Squamous Epithelial Cells RARE /HPF (0-2) Urine Bacteria RARE /HPF (None Seen) White Blood Count 8.1 K/uL (4.8-10.8) Red Blood Count 4.70 MIL/uL (4.00-5.50) Hemoglobin 12.9 g/dL (12.0-16.0) Hematocrit 41.0 % (36-48) Mean Corpuscular Volume 87.2 fL (79-99) Mean Corpuscular Hemoglobin 27.4 pg (27.0-33.0) Mean Corpuscular Hemoglobin Concent 31.5 g/dL (32.0-36.0) L Red Cell Distribution Width 14.0 % (11.0-15.5) Platelet Count 285 K/uL (130-400) Mean Platelet Volume 10.3 fL (7.5-10.5) Immature Granulocyte % (Auto) 0.1 % (0-1) Neutrophils (%) (Auto) 57.1 % (40.0-77.0) Lymphocytes (%) (Auto) 32.3 % (21.0-51.0) Monocytes (%) (Auto) 7.0 % (3.0-13.0) Eosinophils (%) (Auto) 2.9 % (0.0-8.0) Basophils (%) (Auto) 0.6 % (0.0-5.0) Neutrophils # (Auto) 4.6 K/uL (1.8-7.7) Lymphocytes # (Auto) 2.6 K/uL (1.0-4.8) Monocytes # (Auto) 0.6 K/uL (0.1-1.0) Eosinophils # (Auto) 0.23 K/uL (0.00-0.70) Basophils # (Auto) 0.05 K/uL (0.00-0.20) Absolute Immature Granulocyte (auto 0.01 K/uL (0-1) Nucleated Red Blood Cells 0.0 % (0.0-0.19) Sodium Level 139 mmol/L (136-145) Potassium Level 3.4 mmol/L (3.5-5.1) L Chloride Level 101 mmol/L (101-111) Carbon Dioxide Level 32 mmol/L (21-32) Blood Urea Nitrogen 32 mg/dL (7-18) H Creatinine 0.9 mg/dL (0.5-1.0) Glomerular Filtration Rate Calc 74 mL/min (>90) Random Glucose 90 mg/dL (70-105) Total Calcium 9.0 mg/dL (8.5-10.1) REASON: HEMATURIA. HISTORY OF UROLITHIASIS ORDERING PHYSICIAN: JAILENE LUONG NP PROCEDURE: RENAL - US RENAL SONOGRAM EXAMINATION: ULTRASOUND OF THE RETROPERITONEUM. CLINICAL HISTORY: Hematuria. COMPARISON: Ultrasound of the retroperitoneum dated 09/21/[address] of the abdomen pelvis dated 09/25/2016. TECHNIQUE: Real-time grayscale ultrasound images of the kidneys. FINDINGS: The kidneys are normal in caliber, the right kidney measures 9.5 x 4.4 x 4.3 cm and the left kidney measures 10.8 x 5.8 x 4.0 cm in its craniocaudal, AP, and transverse dimensions respectively. There is normal renal cortical thickness, and cortical echogenicity. There is no renal calculus or hydronephrosis. There is a simple cortical cyst that measures 1.1 x 1.5 x 1.2 cm in the lower pole of the right kidney. There is a simple cortical cyst that measures 1.0 x 1.2 x 0.9 cm in the mid pole of the left kidney. The urinary bladder is normal in caliber and wall thickness (0.1 cm). There are no calculi in the urinary bladder. IMPRESSION: Bilateral simple renal cortical cysts. /[facility] Labs Reviewed?: Yes ED Course ED Course Orders Procedure Category Date Status Time Cbc With Differential LAB 03/21/25 Complete 18:57 Urinalysis Profile LAB 03/21/25 Complete 18:57 Basic Metabolic Panel LAB 03/21/25 Complete 18:57 Culture Urine HARRIET 03/21/25 In Process 19:17 Us Renal Sonogram US 03/21/25 Resulted 19:26 Vital Signs Date Time Temp Pulse Resp B/P (MAP) Pulse Ox O2 Delivery O2 Flow Rate FiO2 03/21/25 20:06 97.9 58 15 197/94 96 Room Air* 0 21 03/21/25 18:47 97.9 76 16 193/95 98 Room Air 2054/SPOKE WITH PATIENT AT LENGTH REGARDING CLINICAL FINDINGS SHE HAS A PAIR AWARE SHE HAS BILATERAL RENAL CYST. DISCHARGED HOME WITH THAT AND HEMATURIA TOLD TO SEE HER DOCTOR IN THE NEXT FEW DAYS. Medical Decision Making MDM MEDICAL DISCHARGE MAKING BASED ON BASIC LABS URINALYSIS AND RENAL ULTRASOUND. NO INFECTION NO ANEMIA AT THIS TIME. NO STONE AT THIS TIME BILATERAL RENAL CYST DISCHARGED HOME TO FOLLOW UP WITH HER DOCTOR. DX & DISP Disposition: Discharge Departure Impression: Primary Impression: Bilateral renal cysts Additional Impressions: Hematuria, Hypokalemia, Dehydration Condition: Stable Additional Instructions: FOLLOW-UP WITH PRIMARY CARE PROVIDER IN 1 TO 2 DAYS. TAKE MEDICATIONS DIRECTED HERE IN THE EMERGENCY ROOM. OKAY TO CONTINUE HOME MEDICATIONS UNLESS OTHERWISE DISCUSSED DURING YOUR VISIT IN THE EMERGENCY ROOM TODAY. RETURN TO YOUR NEAREST EMERGENCY ROOM IF SYMPTOMS WORSEN OR IF THERE IS NO IMPROVEMENT. CALL 911 IF YOU NEED IMMEDIATE ASSISTANCE. TAKE TYLENOL OR MOTRIN [id number] NEEDED AND IF NO CONTRAINDICATIONS ARE PRESENT. INCREASE ORAL HYDRATION. A WOUND CULTURE OR URINE CULTURE WAS ORDERED HERE IN THE EMERGENCY ROOM DEPARTMENT PLEASE FOLLOW-UP WITH PRIMARY CARE PROVIDER AND ADVISE THEM TO GET REPEAT PORTS FROM OUR FACILITY. IF YOU HAD ANY SUSIE WRAP/SPLINTS THAT WERE APPLIED HERE, PLEASE DO NOT REMOVE THEM UNTIL YOU SEE YOUR PRIMARY CARE OR SPECIALTY. DIET AND ACTIVITY TOLERATED. , INCREASE YOUR WATER INTAKE., SEE YOUR PRIMARY CARE DOCTOR FOR FOLLOW UP IN 1-2 DAYS. Referrals: MATTHEW ESPARZA MD (PCP) Time of Disposition: 20:56 I have reviewed the case, and I agree with, Diagnosis and Plan JAILENE LUONG NP Mar 21, 2025 18:59
[2025-03-21 19:12] LABS: APPEARANCE,URINE CLOUDY (CLEAR); GLUCOSE, URINE (UA) NEGATIVE (NEGATIVE); LEUKOCYTE ESTERASE ,URINE NEGATIVE Leu/uL (NEGATIVE); NITRATE,URINE NEGATIVE (NEGATIVE); OCCULT BLOOD,URINE LARGE (NEGATIVE)
[2025-03-21 19:13] LABS: ADD UA MICROSCOPIC YES
[2025-03-21 19:15] LABS: SQUAMOUS EPITHELIAL CELL,UR RARE /HPF (0-2)
[2025-03-21 19:27] LABS: IMMATURE GRANULOCYTE ABSOLUTE 0.01 K/uL (0-1); NUCLEATED RED BLOOD CELLS 0.0 % (0.0-0.19); PLATELET COUNT (AUTO) 285 K/uL (130-400); RED BLOOD CELL COUNT(AUTO) 4.70 MIL/uL (4.00-5.50); RED CELL DISTRIBUTION WIDTH 14.0 % (11.0-15.5); WHITE BLOOD COUNT (AUTO) 8.1 K/uL (4.8-10.8)
[2025-03-21 19:39] LABS: CREATININE 0.9 mg/dL (0.5-1.0); GLOMERULAR FILTR. RATE CALC 74.0 mL/min (>90); GLUCOSE,RANDOM 90.0 mg/dL (70-105); SODIUM SERUM 139.0 mmol/L (136-145); UREA NITROGEN, BLOOD 32.0 mg/dL (7-18)
--- NOTE | 2025-03-21 19:49 | NUR ---
PT CARE ASSUMED AT THIS TIME
--- NOTE | 2025-03-21 20:41 | HMCIMG ---
EXAMINATION: ULTRASOUND OF THE RETROPERITONEUM. CLINICAL HISTORY: Hematuria. COMPARISON: Ultrasound of the retroperitoneum dated 09/21/[address] of the abdomen pelvis dated 09/25/2016. TECHNIQUE: Real-time grayscale ultrasound images of the kidneys. FINDINGS: The kidneys are normal in caliber, the right kidney measures 9.5 x 4.4 x 4.3 cm and the left kidney measures 10.8 x 5.8 x 4.0 cm in its craniocaudal, AP, and transverse dimensions respectively. There is normal renal cortical thickness, and cortical echogenicity. There is no renal calculus or hydronephrosis. There is a simple cortical cyst that measures 1.1 x 1.5 x 1.2 cm in the lower pole of the right kidney. There is a simple cortical cyst that measures 1.0 x 1.2 x 0.9 cm in the mid pole of the left kidney. The urinary bladder is normal in caliber and wall thickness (0.1 cm). There are no calculi in the urinary bladder. IMPRESSION: Bilateral simple renal cortical cysts. /[place]
--- NOTE | 2025-03-21 21:20 | NUR ---
PROVIDER JAILENE SPENCER MADE AWARE OF BP. PER JAILENE PT IS CLEARED FOR DISCHARGE
[2025-03-21 21:21] VITALS: BP 183/80; PULSE 59; RESP 16; TEMP 97.9; O2SAT 98
== END 2025-03-21 21:22 | disposition home or self-care (01) ==
LOC: EDH 18:45
DX: N28.1 Cyst of kidney, acquired (principal); R31.9 Hematuria, unspecified; E87.6 Hypokalemia; E86.0 Dehydration; F41.9 Anxiety disorder, unspecified; I10 Essential (primary) hypertension; Z79.1 Long term (current) use of non-steroidal anti-inflammatories (NSAID); Z79.899 Other long term (current) drug therapy; Z90.49 Acquired absence of other specified parts of digestive tract
CPT/HCPCS: 36415; 76770; 80048; 81001; 85025; 87086; 99284

== ENCOUNTER 2025-07-10 17:09 | Emergency (ER) | payer OTHER, BC ==
[~2025-07-10] VITALS: Ht 152.4 cm; Wt 88.0 kg
[2025-07-10] MEDS: CYCLOBENZAPRINE HCL 10 MG TABLET PO ONE (17:39)
--- NOTE | 2025-07-10 18:21 | HMCIMG ---
EXAM: CR left Knee, 3 View. CLINICAL HISTORY: pain COMPARISON: None provided. FINDINGS: BONES: Generalized osteopenia No fracture JOINTS: Moderate tricompartmental degenerative changes. SOFT TISSUES: The soft tissues are unremarkable. IMPRESSION: 1. Moderate tricompartmental degenerative changes. 2. Generalized osteopenia 3. No fracture /[place]
--- NOTE | 2025-07-10 18:39 | HMCIMG ---
STUDY CR left femur, 4 view CLINICAL HISTORY Left lower extremity pain TECHNIQUE Frontal and lateral radiographs of the left femur including hip and knee joints COMPARISON None FINDINGS Bones Femoral cortical and trabecular bone architecture is intact without evidence of acute fracture or destructive osseous lesion. No periosteal reaction or focal lytic or sclerotic lesion is identified. Joints There is mild osteoarthritic change at the left hip with minimal joint space narrowing and small marginal osteophytes. There is severe osteoarthritis of the left knee characterized by marked joint space narrowing, prominent marginal osteophyte formation, subchondral sclerosis, and subchondral cystic change, most pronounced in the medial and patellofemoral compartments. No joint dislocation is seen. Soft tissues Periarticular and regional soft tissues are unremarkable without soft tissue mass, abnormal calcification, or sizable joint effusion evident on radiographs. IMPRESSION * Severe osteoarthritis of the left knee, greatest in the medial and patellofemoral compartments. * Mild osteoarthritis of the left hip. * No acute fracture or dislocation. /[place]
[2025-07-10 19:00] VITALS: BP 149/88; PULSE 84; RESP 18; TEMP 98.5; O2SAT 97
[2025-07-10] MEDS ORDERED: MELO-108 PO (19:25)
[2025-07-10] MEDS ORDERED: CYCL5TAB3 PO (19:25)
--- NOTE | 2025-07-10 19:25 | ERN ---
ED Note History of Present Illness Stated Complaint: LEG PAIN Chief Complaint: Lower Extremity Pain/Injury Time Seen by MD: 17:15 Time Seen by Midlevel: 17:15 Dictation: The patient is a 60-year-old female with a history of hypertension who presents to the emergency department with left posterior upper leg pain. Patient reports she was at work and she was walking really fast when she heard a pop. Denies any falls or injuries. Allergies: Coded Allergies: No Known Drug Allergies (Verified Allergy, Unknown, 09/19/20) Home Meds Active Scripts Meloxicam (Meloxicam) 7.5 Mg Tablet, 1 TAB PO DAILY for 10 Days, #30 TAB 0 Refills Prov:AARON MONTALVO [employer] 01/09/25 Tramadol HCl (Tramadol HCl) 100 Mg Tablet, 100 MG PO Q6HPRN PRN for PAIN LEVEL 7 TO 10 for 5 Days, #20 TAB Prov:EDGARDO GOFF V [employer] 05/30/23 Tamsulosin HCl (Flomax) 0.4 Mg Cap.er.24h, 0.4 MG PO DAILY for 7 Days, #7 CAPSULE.DR Prov:ROBBI FRANKLIN MD 09/24/22 Acetaminophen with Codeine (Acetaminophen-Cod #3 Tablet) 1 Each Tablet, 1 TAB PO Q6H PRN for SEVERE PAIN (7-10), #15 TAB Prov:ROBBI FRANKLIN MD 09/24/22 Ibuprofen (Ibuprofen) 600 Mg Tablet, 600 MG PO Q6H PRN for PAIN, #30 TAB Prov:ROBBI FRANKLIN MD 09/24/22 Albuterol Sulfate (Proair Hfa) 8.5 Gm Hfa.aer.ad, 8.5 GM IH Q4HPRN PRN for WHEEZING for 30 Days, #1 INHALER Prov:JANA DEJESUS PAC 09/21/20 Reported Medications Buspirone HCl (Buspirone HCl) 30 Mg Tablet, 30 MG PO DAILY, TAB 02/07/22 Gabapentin (Neurontin) 300 Mg Capsule, 300 MG PO BID, CAP 02/07/22 Losartan Potassium (Losartan Potassium) 100 Mg Tablet, 100 MG PO DAILY, TAB 02/07/22 Past Medical History Past Medical History: Anxiety, Hypertension Surgical History: Appendectomy, Cholecystectomy, Surgical History Other: C5 SURGERY Social History: Negative, Lives with family, Other History: Not Applicable RN Note Reviewed/Agreed w/PFSH: Yes Review of System Dictation Constitutional: Negative for fever,chills, and weight loss Eyes: Negative for injury, pain,redness, and discharge ENT: Negative for injury,pain or swelling Cardiovascular: Negative for chest pain, palpitations, and edema Respiratory: Negative for shortness of breath, cough, and wheezing, Abdomen/GI: Negative for abdominal pain, nausea, vomiting, diarrhea, and constipation Back: Negative for injury and pain : Negative for injury, bleeding and discharge MS/Extremity: Positive for left leg injury Skin: Negative for rash, and discoloration Neuro: Negative for headache, weakness, numbness, tingling, and seizure Psych: Negative for suicide ideation, homicidal ideation, and hallucinations Initial Vital Sign VS Vital Signs Date Time Temp Pulse Resp B/P (MAP) Pulse Ox O2 Delivery O2 Flow Rate FiO2 07/10/25 17:11 98.8 86 18 180/92 97 07/10/25 19:00 Room Air* 0 21 Physical Exam Dictation Vital Signs reviewed General Appearance: Alert, oriented x 3, no acute distress, well developed, nourished. Head and Face: non-traumatic. Eyes: PERRL, pink conjunctivas, eyelid no trauma, anterior chamber with arcus senilis. Ears: Pinnas intact and no signs of trauma or erythema ear canals clear and no discharge TM no erythema Nose: No discharge, no bleeding. Oropharynx: Mouth normal, tongue pink. pharynx clear,no erythema, tonsils no exudates, no abscesses noted, mucous membrane moist Neck: Supple, non-tender, no thyromegaly, no masses, no JVD, no bruits Breast:Deferred Chest:No tenderness, no crepitus, no paradoxical movement, no retractions Lungs:Clear, well-ventilated, symmetric, no rales, no wheezing, no rhonchi, no stridor, good breath sounds bilaterally Heart: Regular rate, regular rhythm, no murmur, no gallops Vascular: no peripheral edema, dorsalis pedis 3+ bilaterally Abdomen: Soft, positive bowel sounds, nondistended, no guarding, nontender, no rebound, no masses no hepatomegaly, no splenomegaly, no Shetty's sign, no hernias. Rectal: Deferred Genital: Deferred Neurological: Normal speech, motor function intact, sensory function intact Musculoskeletal: Neck nontender, full range of motion, back nontender, full range of motion, Extremities: nontender, full range of motion , tenderness to left posterior upper leg, full range of motion, no wounds Skin: Color pink, dry, no turgor, no rash, no lacerations, no abrasions, no contusions. Lymphatic: Deferred Results (Laboratory/Radiology) Laboratory/Radiology ORDERING PHYSICIAN: AARON MONTALVO [employer] PROCEDURE: KNEE 3V LT - KNEE 3VWS LT EXAM: CR left Knee, 3 View. CLINICAL HISTORY: pain COMPARISON: None provided. FINDINGS: BONES: Generalized osteopenia No fracture JOINTS: Moderate tricompartmental degenerative changes. SOFT TISSUES: The soft tissues are unremarkable. IMPRESSION: 1. Moderate tricompartmental degenerative changes. 2. Generalized osteopenia 3. No fracture /[place] REASON: pain ORDERING PHYSICIAN: AARON MONTALVO [employer] PROCEDURE: FEM LT 2 - FEMUR 2 VW LEFT STUDY CR left femur, 4 view CLINICAL HISTORY Left lower extremity pain TECHNIQUE Frontal and lateral radiographs of the left femur including hip and knee joints COMPARISON None FINDINGS Bones Femoral cortical and trabecular bone architecture is intact without evidence of acute fracture or destructive osseous lesion. No periosteal reaction or focal lytic or sclerotic lesion is identified. Joints There is mild osteoarthritic change at the left hip with minimal joint space narrowing and small marginal osteophytes. There is severe osteoarthritis of the left knee characterized by marked joint space narrowing, prominent marginal osteophyte formation, subchondral sclerosis, and subchondral cystic change, most pronounced in the medial and patellofemoral compartments. No joint dislocation is seen. Soft tissues Periarticular and regional soft tissues are unremarkable without soft tissue mass, abnormal calcification, or sizable joint effusion evident on radiographs. IMPRESSION * Severe osteoarthritis of the left knee, greatest in the medial and patellofemoral compartments. * Mild osteoarthritis of the left hip. * No acute fracture or dislocation. /[place]astern Labs Reviewed?: Yes ED Course ED Course Orders Procedure Category Date Status Time Knee 3vws Lt RAD 07/10/25 Resulted 17:28 Femur 2 Vw Left RAD 07/10/25 Resulted 17:28 Ketorolac 60mg/2ml PHA 07/10/25 Complete (Toradol 60mg/2ml) 17:30 Cyclobenzaprine Hcl PHA 07/10/25 Complete (Cyclobenzaprine Hcl 17:30 Current Medications Medications (Trade) Dose Ordered Sig/Melanie Route PRN Reason Start Time Stop Time Status Last Admin Dose Admin Cyclobenzaprine HCl (Cyclobenzaprine HCl) 10 mg ONCE ONCE PO 07/10/25 17:30 07/10/25 17:31 DC 07/10/25 17:39 Ketorolac Tromethamine (toRADol 60MG/ 2ML) 60 mg ONCE ONCE IM 07/10/25 17:30 07/10/25 17:31 DC 07/10/25 17:42 Vital Signs Date Time Temp Pulse Resp B/P (MAP) Pulse Ox O2 Delivery O2 Flow Rate FiO2 07/10/25 19:00 98.4 84 18 149/88 97 Room Air* 0 21 07/10/25 17:11 98.8 86 18 180/92 97 Medical Decision Making MDM The patient is a 60-year-old female with a history of hypertension who presents to the emergency department with left posterior upper leg pain. Patient reports she was at work and she was walking really fast when she heard a pop. Denies any falls or injuries. X-ray showed no acute fractures, osteoarthritis of the left knee. Patient received pain medications. Patient reports she feels a lot better. Patient otherwise neurovascularly intact. Was ambulatory after the incident. Patient will be discharged to follow up with the ortho. Differential diagnosis: Hamstring injury, femur fracture, knee dislocation Need for hospitalization: Patient does not meet criteria for hospitalization. There are no social concerns with this patient. DX & DISP Disposition: Discharge Departure Impression: Primary Impression: Hamstring injury Additional Impressions: Pain in left leg, Osteoarthritis of left knee Condition: Stable Scripts Cyclobenzaprine HCl (Cyclobenzaprine HCl) 5 Mg Tablet 1 TAB PO BID PRN for muscle spasms for 10 Days, #20 TAB 0 Refills Prov: AARON MONTALVO [employer] 07/10/25 Meloxicam (Meloxicam) 15 Mg Tablet 1 TAB PO DAILY for 10 Days, #10 TAB 0 Refills Prov: AARON MONTALVO [employer] 07/10/25 Additional Instructions: Please follow up with your primary doctor in 1-2 days. Follow up with the ortho. If symptoms do not improve you might need further evaluation by your primary doctor orthopedic. FOLLOW-UP WITH PRIMARY CARE PROVIDER IN 1 TO 2 DAYS. TAKE MEDICATIONS DIRECTED HERE IN THE EMERGENCY ROOM. OKAY TO CONTINUE HOME MEDICATIONS UNLESS OTHERWISE DISCUSSED DURING YOUR VISIT IN THE EMERGENCY ROOM TODAY. RETURN TO YOUR NEAREST EMERGENCY ROOM IF SYMPTOMS WORSEN OR IF THERE IS NO IMPROVEMENT. CALL 911 IF YOU NEED IMMEDIATE ASSISTANCE. TAKE TYLENOL [id number] NEEDED AND IF NO CONTRAINDICATIONS ARE PRESENT. INCREASE ORAL HYDRATION. A WOUND CULTURE OR URINE CULTURE WAS ORDERED HERE IN THE EMERGENCY ROOM DEPARTMENT PLEASE FOLLOW-UP WITH PRIMARY CARE PROVIDER AND ADVISE THEM TO GET REPEAT PORTS FROM OUR FACILITY. IF YOU HAD ANY SUSIE WRAP/SPLINTS THAT WERE APPLIED HERE, PLEASE DO NOT REMOVE THEM UNTIL YOU SEE YOUR PRIMARY CARE OR SPECIALTY. Referrals: MATTHEW ESPARZA MD (PCP) VIRI BOWEN MD Time of Disposition: 19:23 I have reviewed the case, and I agree with, Diagnosis and Plan AARON MONTALVO [facility] Jul 10, 2025 19:25
--- NOTE | 2025-07-10 19:36 | NUR ---
PT WAS GIVEN CRUTCHES AND SUSIE WRAP APPLIED TO LEFT KNEE. PT STATES SHE HAS EXPERIENCE WITH CRUTCHES AND WAS ABLE TO PROVIDE GOOD DEMONSTRATION.
== END 2025-07-10 19:38 | disposition home or self-care (01) ==
LOC: EDH 17:09
DX: S76.311A Strain of muscle, fascia and tendon of the posterior muscle group at thigh level, right thigh, initial encounter (principal); M17.12 Unilateral primary osteoarthritis, left knee; I10 Essential (primary) hypertension; F41.9 Anxiety disorder, unspecified; Z79.899 Other long term (current) drug therapy; Z79.1 Long term (current) use of non-steroidal anti-inflammatories (NSAID); Z90.49 Acquired absence of other specified parts of digestive tract; Z98.890 Other specified postprocedural states; X50.1XXA Overexertion from prolonged static or awkward postures, initial encounter; Y93.01 Activity, walking, marching and hiking; Y92.89 Other specified places as the place of occurrence of the external cause; Y99.0 Civilian activity done for income or pay
CPT/HCPCS: 99284; 73552; 73562; 96372; J1885